=== PATIENT | male | born 1970 | race Caucasian/White ===

== ENCOUNTER → 2019-07-17 | Outpatient (CLI) | payer BC | END | disposition home or self-care (01) | LOC: OIH 11:27 | PROVIDERS: ATTEND Internal Medicine | DX: I10 Essential (primary) hypertension (principal) | CPT/HCPCS: 71046 ==

== ENCOUNTER → 2019-10-20 | Outpatient (CLI) | payer BC | END | disposition home or self-care (01) | LOC: OIH 15:44 | PROVIDERS: ATTEND Internal Medicine | DX: J18.9 Pneumonia, unspecified organism (principal) | CPT/HCPCS: 71046 ==